=== PATIENT | female | born 1960 | race Caucasian/White ===

== ENCOUNTER 2016-09-07 10:28 | Emergency (ER) | payer OTHER ==
[~2016-09-07] VITALS: Ht 154.9 cm; Wt 75.5 kg
[~2016-09-07 10:28] MED LIST: LEVO750T25 PO; ONDA4TAB35 PO
[2016-09-07 10:33] VITALS: Ht 154.9 cm; Wt 75.5 kg
--- NOTE | 2016-09-07 11:30 | ERD ---
ER Documentation Chief Complaint Date/Time DATE: 09/07/16 TIME: 11:28 Chief Complaint COUGH , FEVER X 5 DAYS HPI 56-year-old female otherwise healthy comes emergency department the dry cough, sore throat and congestion for 5 days. Patient states that he has had a dry cough, no hemoptysis. She reports that she had a fever for the past 3 days as well and it was 101 this morning she took Tylenol. She denies any recent travel. ROS All systems reviewed and are negative except as per history of present illness. Medications Home Meds Active Scripts Ibuprofen* (Motrin*) 600 Mg Tab, 600 MG PO Q6, #30 TAB Prov:ANA CHOI PA-C 09/07/16 Dextromethorphan Hb-Promethazine Hcl (Promethazine DM Syrup) 473 Ml Syrup, 5 ML PO Q6H Y for COUGH, #4 OZ Prov:ANA CHOI PA-C 09/07/16 Azithromycin* (Zithromax*) 250 Mg Tablet, 250 MG PO .ZPACK DIRECTED, #6 TAB TAKE 500 MG (2 TABS) THE FIRST DAY THEN 250 MG (1 TAB) DAYS 2-5 Prov:ANA CHOI PA-C 09/07/16 Ondansetron Hcl* (Zofran* ODT) 4 mg -ODT Tab.disper, 4 MG PO Q6 Y for NAUSEA AND /OR VOMITING, #10 TAB Prov:ANA CHOI PA-C 08/31/15 Levofloxacin* (Levaquin*) 750 Mg Tablet, 750 MG PO DAILY for 5 Days, TAB Prov:ANA CHOI PA-C 08/31/15 PMhx/Soc History of Surgery: No Anesthesia Reaction: No Hx Neurological Disorder: No Hx Respiratory Disorders: No Hx Cardiac Disorders: No Hx Psychiatric Problems: No Hx Miscellaneous Medical Probl: No Hx Alcohol Use: No Hx Substance Use: No Hx Tobacco Use: No Smoking Status: Never smoker Physical Exam Vitals Vital Signs Date Time Temp Pulse Resp B/P Pulse Ox O2 Delivery O2 Flow Rate FiO2 09/07/16 10:33 98.1 80 18 110/73 99 Physical Exam General: Well-developed, well-nourished. The patient appears in no acute distress. HEENT: Head is normocephalic, atraumatic. No scleral icterus. Pupils are equal , round, and reactive. Oral mucous membranes are moist. No pharyngeal erythema. TMs are normal. Neck: Supple. Nontender. Lungs: Clear to auscultation. Normal air movement. Heart: Regular rate and rhythm. S1 and S2 are normal. No murmurs, gallops, or rubs. Abdomen: Soft, nontender, nondistended. Bowel sounds are normoactive. Extremities: No clubbing or cyanosis. Normal pulses. Moving extremities x 4. No weakness. Neurologic: Alert and oriented 3. No focal deficits. Skin: Normal turgor. No rash or lesions. Results 24 hrs PROCEDURE: Chest Radiograph. CLINICAL INDICATION: Cough. Fever. TECHNIQUE: Single frontal chest radiograph. COMPARISON: Chest radiograph 08/31/2015 FINDINGS: Heart size is within normal limits. Atherosclerotic calcifications are present. No infiltrate or effusion is seen. The bones are intact. IMPRESSION: 1. No evidence of acute cardiopulmonary disease. 2. Atherosclerotic vascular disease. RPTAT: KK .Curtis Dove MD, MD Date Time Electronically viewed and signed by .Curtis Dove MD, on 2016 13:29 .B/ Procedures/[facility] The patient is a 56-year-old female who comes in with an acute upper respiratory infection versus acute bronchitis. Patient's history includes cough and fever, chest x-ray was done and there is no evidence of any infiltrative process. Based on patient's history of fever and cough, and she will be treated for possible bronchitis. The patient has a differential diagnosis of a viral upper respiratory infection, bacterial upper respiratory infection, bronchitis, pneumonia, pharyngitis, laryngitis, epiglottitis, croup, pneumonia. Patient has a normal pulmonary examination, clear breath sounds, normal pulse oximetry, with no corrective measures needed at this time. Fluids, rest, antipyretics were encouraged. Departure Diagnosis: Primary Impression: Acute bronchitis Condition: Good ANA CHOI PA-C September 07, 2016 11:30
--- NOTE | 2016-09-07 13:29 | RADRPT ---
PROCEDURE: Chest Radiograph. CLINICAL INDICATION: Cough. Fever. TECHNIQUE: Single frontal chest radiograph. COMPARISON: Chest radiograph 08/31/2015 FINDINGS: Heart size is within normal limits. Atherosclerotic calcifications are present. No infiltrate or effusion is seen. The bones are intact. IMPRESSION: 1. No evidence of acute cardiopulmonary disease. 2. Atherosclerotic vascular disease. RPTAT: KK .Curtis Dove MD, MD Date Time Electronically viewed and signed by .Curtis Dove MD, on 09/07/2016 13:29 .B/
[2016-09-07] MEDS ORDERED: AZIT250T94 PO (13:40)
[2016-09-07] MEDS ORDERED: IBUP-1542 PO (13:40)
[2016-09-07] MEDS ORDERED: D-ME473S18 PO (13:40)
== END 2016-09-07 14:14 | disposition home or self-care (01) ==
LOC: FTE 10:28
DX: J20.9 Acute bronchitis, unspecified (principal)
CPT/HCPCS: 71010